=== PATIENT | female | born 1955 | race Caucasian/White ===

== ENCOUNTER → 2017-03-05 | Day surgery (SDC) | payer OTHER ==
[~2017-03-05] MED LIST: DULOXETINE HCL60 MG PO; DYRENIUM50 MG PO; ESTRACE1 MG PO; HYDROCODONE-AP1 EAC6 PO; NAPROSYN500 MG PO; NEURONTIN300 MG PO; NORVASC5 MG PO; TRAZODONE HCL50 MG PO
--- NOTE | 2017-03-05 13:01 | H ---
[address] [address] HISTORY AND PHYSICAL Name: YAQUELIN MENA Room: [facility]#: [id number] Admission: Attend Phys: Mackenzie Diaz MD Discharge: Date of : 55 Report #: [id number] THIS REPORT FOR: //name// CC: FAM unknown Mackenzie Diaz DATE OF SERVICE: 03/05/2017 To be treated on 03/05/2017. ADMITTING DIAGNOSIS: Umbilical hernia. HISTORY OF PRESENT ILLNESS: The patient is a 61-year-old female who presents to my office for abdominal pain, and GI workup was obtained, which was negative, and then, a CT scan was obtained and reported an incisional or umbilical hernia. She was referred for surgical management. PAST MEDICAL HISTORY: Includes depression, hypertension. PAST SURGICAL HISTORY: Includes breast augmentation, explantation and an abdominoplasty. MEDICATIONS: Include amlodipine, estradiol, duloxetine and trazodone. SOCIAL HISTORY: She is also every day smoker, and she is currently unemployed. She does not drink excessive alcohol. PHYSICAL EXAMINATION: GENERAL: She is an obese, well-developed female. HEAD, EARS, EYES, NOSE AND THROAT: Unremarkable. NECK: Supple. LUNGS: Clear. HEART: Regular rate and rhythm without murmur. ABDOMEN: Presence of a large scar near the periumbilical region. There is fullness and a slight tenderness just above and around the periumbilical stalk. Her lower abdominal exam noted a healed scar in the configuration of her transverse and vertical incision consistent with the abdominoplasty. EXTREMITIES: Noted no varicosities and pitting edema. IMPRESSION AND PLAN: Umbilical hernia. I have outlined incisional umbilical hernia repair with open technique. I have outlined the risks and benefits of that procedure. Answered her questions. She understood and wishes to proceed. <ELECTRONICALLY SIGNED> By: Mackenzie Diaz MD 03/05/17 1301 1601 [id number] Diaz MD /nt
[2017-03-05 14:13] LABS: HEMATOCRIT 42.6 % (37.0-47.0); HEMOGLOBIN 14.2 gm/dL (12.0-15.0); MCH 30.2 pg (26.0-34.0); MCHC 33.3 g/dL (28.0-37.0); MCV 90.7 fL (80.0-100.0); MPV 8.3 fl. (7.2-11.1); RBC 4.7 mil/uL (4.20-5.00); RDW-CV 13.5 % (10.5-14.5); WBC 5.8 thou/uL (4.0-11.0)
[2017-03-05 14:22] LABS: CALCIUM 9.3 mg/dL (8.5-10.1); CREATININE 0.8 mg/dL (0.6-1.3); POTASSIUM 3.5 mmol/L (3.5-5.1)
[2017-03-05 14:26] LABS: ALBUMIN 3.4 g/dL (3.4-5.0); TOTAL BILIRUBIN 0.3 mg/dL (<0.1-1.0)
--- NOTE | 2017-03-05 15:30 | EKG ---
[place] [address] ELECTROCARDIOGRAM REPORT Name: YAQUELIN MENA Room: [facility]#: [id number] Admission: 03/05/17 Attend Phys: Mackenzie Diaz MD Discharge: Date of : 55 Report #: [id number] THIS REPORT FOR: //name// [facility] Test Date: 2017-03-05 Test Time: 14:00:11 Pat Name: YAQUELIN MENA Department: Room: Gender: F Bag Shaker: : 1955 Requested By: Mackenzie Diaz Order Number: [id number] Reading MD: Ricki Urias Measurements Intervals [place] Rate: 81 P: 27 IA: 147 QRS: -6 QRSD: 94 T: 36 QT: 461 QTc: 536 Interpretive Statements Sinus rhythm Low voltage, precordial leads Prolonged QT interval No previous ECG available for comparison Electronically Signed On 03-05-2017 15:30:01 TYRE FITTER by Ricki Urias [email or web address] <ELECTRONICALLY SIGNED> By: Ricki Urias MD, [facility] 03/05/17 1530 1400 [facility] Ricki Urias MD, FACC /EPI
--- NOTE | 2017-03-11 13:40 | OP ---
[address] [address] OPERATIVE REPORT Name: YAQUELIN MENA Room: [facility]..#: [id number] Admission: 03/05/17 Attend Phys: Mackenzie Diaz MD Discharge: Date of : 55 Report #: [id number] THIS REPORT FOR: //name// CC: RAFIQ Chen DATE OF SERVICE: 03/05/2017 PREOPERATIVE DIAGNOSIS: Incisional umbilical hernia. POSTOPERATIVE DIAGNOSIS: Incisional umbilical hernia. OPERATIVE PROCEDURE: Incisional/umbilical hernia repair with placement of 4.3 cm Ventralex mesh and 0 Prolene. Placement of negative pressure wound therapy device, SLIME size 10 cm x 20 cm. ANESTHESIA: General endotracheal infiltration with 0.5% Marcaine with epinephrine into the wound site. DESCRIPTION OF PROCEDURE: After the patient was placed under general endotracheal anesthesia, the abdomen was carefully prepped and draped in a sterile fashion. A timeout taken. Antibiotics were administered. I began by infiltrating around the periumbilical stalk for approximately 6 cm with 0.5% Marcaine. The previous periumbilical scar and midline incisional scar was reopened just above the umbilical stalk to just below it with a #15 scalpel blade. Cautery was used to dissect into the subcutaneous tissues and when I got there, since she had prior abdominoplasty surgery, rearrange scar and fat tissue was encountered. I was able then to palpate what was the remnant of the umbilical stalk and follow it to a defect in the superior aspect of the abdominal wall, abdominoplasty defect and I was able to admit approximately an opening with preperitoneal fat, which was eviscerated out and dissected around the sides of that hernia sac and sent as a specimen. The defect was cleared. The Ventralex mesh was brought on to the field and passed through the defect with the tails pulling up above it and secured against the inside of the abdominal wall. Four interrupted 0 Prolenes were passed through the abdominal wall through the mesh and back to the abdominal wall and tied securely and then infiltrated with Marcaine. I then cut the tails and then started reapproximating the deep tissues with 3-0 chromic sutures. I then reapproximated the dermal scar with 4-0 PDS sutures. I then placed ana maría and then the SLIME bandage for support ending the operative procedure. ESTIMATED BLOOD LOSS: 5 [place] [id number] OPERATIVE REPORT Name: YAQUELIN MENA Room: [facility] Danis#: [id number] Admission: 03/05/17 Attend Phys: Mackenzie Diaz MD Discharge: Date of : 55 Report #: [id number] SPECIMEN: Fatty tissue was taken for pathology. The patient then was extubated and returned to the recovery room in satisfactory condition. <ELECTRONICALLY SIGNED> By: Mackenzie Diaz MD 03/11/17 1340 1637 1817Mackenzie Diaz MD /lizbet
== END ==
LOC: M.SUR 13:37
PROVIDERS: Surgery
DX: K43.2 Incisional hernia without obstruction or gangrene (principal); F32.9 Major depressive disorder, single episode, unspecified; I10 Essential (primary) hypertension; Z98.890 Other specified postprocedural states; Z79.899 Other long term (current) drug therapy; F17.200 Nicotine dependence, unspecified, uncomplicated; E66.9 Obesity, unspecified

== ENCOUNTER → 2018-10-14 | Outpatient (CLI) | payer OTHER ==
[~2018-10-14] MED LIST changes: +CLONAZEPAM 0.50.5 M1 PO; +KLOR-CON 1010 MEQ PO; +MIRALAX17 GM PO; +NEURONTIN600 MG PO; +PROTONIX40 M1 PO; +ROBAXIN 750 MG750 MG PO
== END ==
LOC: M.MRI 11:19
DX: S83.232A Complex tear of medial meniscus, current injury, left knee, initial encounter (principal); S83.282A Other tear of lateral meniscus, current injury, left knee, initial encounter; M17.12 Unilateral primary osteoarthritis, left knee; X58.XXXA Exposure to other specified factors, initial encounter; Y93.89 Activity, other specified; Y92.89 Other specified places as the place of occurrence of the external cause; Y99.8 Other external cause status

== ENCOUNTER 2018-11-08 07:55 | Inpatient (IN) | payer OTHER ==
[2018-10-27 09:26] LABS: HEMOGLOBIN 13.9 gm/dL (12.0-15.0); MCH 29.7 pg (26.0-34.0); MCHC 33.2 g/dL (28.0-37.0); MCV 89.5 fL (80.0-100.0); MPV 8.1 fl. (7.2-11.1); RBC 4.7 mil/uL (4.20-5.00); WBC 5.7 thou/uL (4.0-11.0)
[2018-10-27 09:27] LABS: URINE BILIRUBIN NEGATIVE (Negative); URINE BLOOD NEGATIVE (Negative); URINE CLARITY CLEAR; URINE COLOR YELLOW; URINE GLUCOSE-RANDOM NEGATIVE (Negative); URINE KETONES NEGATIVE (Negative); URINE LEUKOCYTES-REFLEX NEGATIVE (Negative); URINE NITRITE-REFLEX NEGATIVE (Negative); URINE PROTEIN NEGATIVE (Negative); URINE SPECIFIC GRAVITY 1.015 (1.005-1.030); URINE UROBILINOGEN 0.2 E.U./dl (0.2-1.0)
[2018-10-27 09:33] LABS: PROTIME 9.8 Seconds (9.20-11.50)
[2018-10-27 09:39] LABS: ALBUMIN 3.1 g/dL (3.4-5.0); CALCIUM 8.8 mg/dL (8.5-10.1); CREATININE 0.8 mg/dL (0.6-1.3); POTASSIUM 3.9 mmol/L (3.5-5.1); TOTAL BILIRUBIN 0.1 mg/dL (<0.1-1.0); TOTAL PROTEIN 6.6 g/dL (6.4-8.2)
--- NOTE | 2018-10-28 11:07 | EKG ---
[place] [address] ELECTROCARDIOGRAM REPORT Name: YAQUELIN MENA Room: PRE IN [facility].#: [id number] Admission: Attend Phys: Jayson Stanley Discharge: Date of : 55 Report #: [id number] THIS REPORT FOR: //name// [facility] Test Date: 2018-10-27 Test Time: 09:35:23 Pat Name: YAQUELIN MENA Department: Room: Gender: F [place]: : 1955 Requested By: Daniel Almonte Order Number: [id number] Reading MD: Bao Aj Measurements Intervals [place] Rate: 55 P: -72 IN: 82 QRS: 14 QRSD: 101 T: 61 QT: 526 QTc: 504 Interpretive Statements Sinus or ectopic atrial bradycardia Short IN interval Low voltage, precordial leads Borderline T abnormalities, anterior leads Prolonged QT interval Compared to ECG 03/05/2017 14:00:11 Ectopic atrial rhythm now present Short IN interval now present Sinus rhythm no longer present Electronically Signed On 10-28-2018 11:06:43 CDT by Bao Aj [email or web address] <ELECTRONICALLY SIGNED> By: Bao Aj MD, [facility] 10/28/18 1106 0935 0935 Bao Aj MD, [facility] /EPI
[~2018-11-08] VITALS: Ht 162.6 cm; Wt 68.5 kg
[2018-11-08 09:29] VITALS: BP 115/58
[2018-11-08 13:30] VITALS: BP 115/63
[2018-11-08 16:00] VITALS: BP 106/66
[2018-11-08 20:00] VITALS: BP 94/53
[2018-11-09] VITALS: BP 92/47
[2018-11-09 04:00] VITALS: BP 108/62
[2018-11-09 04:12] LABS: HEMATOCRIT 36.4 % (37.0-47.0); HEMOGLOBIN 11.9 gm/dL (12.0-15.0)
--- NOTE | 2018-11-09 07:59 | OP ---
[address] [address] OPERATIVE REPORT Name: YAQUELIN MENA Room: [address] Danis#: [id number] Admission: 11/08/18 Attend Phys: Jayson Stanley Discharge: Date of : 55 Report #: [id number] THIS REPORT FOR: //name// CC: RAFIQ ENG Physician staff Daniel Hopkins DATE OF SERVICE: 11/08/2018 PREOPERATIVE DIAGNOSIS: Left knee osteoarthritis. POSTOPERATIVE DIAGNOSIS: Left knee osteoarthritis. PROCEDURE: Left total knee arthroplasty. SURGEON: Daniel Almonte II, D.O. FARM TECHNICIAN: MATTHEW Dunn. ANESTHESIA: General endotracheal. ESTIMATED BLOOD LOSS: 50 mL. ANTIBIOTICS: Per operative record. DRAINS: Hemovac. COMPLICATIONS: None. CONDITION OF PATIENT: Stable to recovery room. IMPLANTS: Listed in operative record and progress note. BRIEF HISTORY: The patient was seen in the preoperative area. Preoperative H and P was performed. Site was marked, questions were answered. Risks and benefits were discussed with the patient in detail about surgery. The patient wished to proceed, assuming all risks. OPERATIVE PROCEDURE: The patient was taken to the operative suite and placed supine on the operating table in appropriate anesthesia. A well-padded tourniquet was applied to the upper thigh, which was inflated to 300 mmHg after gravity exsanguination. The operative knee was sterilely prepped and draped. Surgery began by midline incision. This was carried down to the subcutaneous tissues. A medial parapatellar arthrotomy was performed and carried down to bone. Patella was then everted and excess soft tissue removed from around the [address] [address] OPERATIVE REPORT Name: YAQUELIN MENA Room: [address] Mikie Goodwin.#: [id number] Admission: 11/08/18 Attend Phys: Jayson Stanley Discharge: Date of : 55 Report #: [id number]. Femoral cutting block was then applied, checked with a drop camacho for rotational alignment, pinned in appropriate position and appropriate cuts were made. A 4-in-1 cutting block was then applied, checked for rotational alignment, pinned in appropriate position and appropriate cuts were made. Tibia was then exposed and excess meniscus was removed. Retractor was placed on collateral ligaments. The tibial cutting block was then applied, pinned in appropriate position, checked with drop camacho for rotational alignment and slope, and appropriate cut was made. The tibial bone was removed. Tibial baseplate was then applied, checked for rotational alignment with the drop camacho, pinned in appropriate position. Femur was then applied and box cut was reamed. This was then trialed with appropriate spacer, which showed excellent fit and fill and excellent stability of the knee throughout all range of motion. The patella was then reamed in appropriate fashion and sized to appropriate size. Three peg holes were drilled. It was then trialed and showed excellent flexion, extension, excellent tracking of the patella within the groove. These trials were removed. The tibia was punched in appropriate fashion. Bone ends were cleansed with Pulsavac irrigation and cement was mixed and applied to the final implants. This was then malleted in position and held the knee in extension and compressed to allow cement to cure. After it cured, excess was removed utilizing a [place] and an osteotome. Wound was then copiously irrigated and the final spacer was malleted into position. The tourniquet was deflated. Hemostasis was obtained with electrocautery. Pain cocktail was injected. PRP gel was not obtained. Medium Hemovac drain was applied. Capsule was closed with #2 FiberWire and #1 Vicryl in xumohk-ty-ttilp fashion. Skin was closed with 2-0 Vicryl and running 3-0 Monocryl with Dermabond and sterile dressing applied. Jose wrap and PolarCare applied. The patient transported to recovery room in stable condition. Counts were correct throughout the procedure. <ELECTRONICALLY SIGNED> By: Daniel Almonte II, DO 11/09/18 0759 2236 2250Daniel Almonte II, DO /lizbet
[2018-11-09 08:55] VITALS: BP 112/67
[2018-11-09 16:12] VITALS: BP 103/65
[2018-11-09 20:00] VITALS: BP 114/61
[2018-11-10 03:41] LABS: HEMATOCRIT 33.9 % (37.0-47.0)
[2018-11-10 07:25] VITALS: BP 104/64
[2018-11-10 11:21] VITALS: BP 104/64
[2018-11-10 15:00] VITALS: BP 115/65
[2018-11-10 20:10] VITALS: BP 143/83
[2018-11-11 07:30] VITALS: BP 129/64
[2018-11-11 10:01] VITALS: BP 104/64
[2018-11-11] MEDS ORDERED: XARELTO10 MG PO (10:12)
[2018-11-11] MEDS ORDERED: PERCOCET PO (10:12)
[2018-11-11 11:13] VITALS: BP 104/64
== END 2018-11-11 11:13 | disposition home health service (06) | DRG 470 ==
LOC: M.PRE 07:55 → M.TBA 08:36 → M.ORTHSURG 08:36 → M.TBA 08:36 → M.PRE 09:23 → M.ORTHSURG 13:37
PROVIDERS: Orthopaedic Surgery; ADMIT Internal Medicine
PROC: 0SRD0J9 Replacement of Left Knee Joint with Synthetic Substitute, Cemented, Open Approach (ICD-10-PCS; principal; 2018-11-08)
DX: M17.12 Unilateral primary osteoarthritis, left knee (principal); I10 Essential (primary) hypertension; G89.29 Other chronic pain; K21.9 Gastro-esophageal reflux disease without esophagitis; F41.1 Generalized anxiety disorder; F32.9 Major depressive disorder, single episode, unspecified; Z87.891 Personal history of nicotine dependence; Z79.899 Other long term (current) drug therapy